=== PATIENT | female | born 1955 | race Caucasian/White ===

== ENCOUNTER → 2016-09-18 | Outpatient (CLI) | payer OTHER ==
[~2016-09-18] MED LIST: ACET-1256 PO; AMLO-114 PO; ATOR-22 PO; CLC100 PO; LEVO75TA PO; LISI-461 PO; METO1TAB69 PO; OXYC7.5T62 PO
[2016-09-18 10:50] LABS: ALT/SGPT 25 U/L (12-78); BLOOD UREA NITROGEN 35 mg/dl (7-18); BUN/CREATININE RATIO 24.7 (10-20); CALCIUM 9.7 mg/dl (8.5-10.1); CARBON DIOXIDE 23 mmol/L (21-32); CHLORIDE 107 mmol/L (98-107); GLUCOSE 92 mg/dl (70-99); POTASSIUM 4.1 mmol/L (3.5-5.1); SODIUM 143 mmol/L (136-145)
[2016-09-18 10:52] LABS: BLOOD UREA NITROGEN 35 mg/dl (7-18); BUN/CREATININE RATIO 24.8 (10-20); CALCIUM 9.9 mg/dl (8.5-10.1); CARBON DIOXIDE 24 mmol/L (21-32); CHLORIDE 108 mmol/L (98-107); GLUCOSE 84 mg/dl (70-99); PHOSPHORUS 3.3 mg/dl (2.5-4.9); POTASSIUM 4.3 mmol/L (3.5-5.1); SODIUM 143 mmol/L (136-145)
[2016-09-18 10:53] LABS: ALKALINE PHOSPHATASE 113 U/L (45-117); AST/SGOT 17 U/L (15-37)
== END | disposition home or self-care (01) ==
LOC: C.LAB 09:21
PROVIDERS: ATTEND Urology
DX: Q61.3 Polycystic kidney, unspecified (principal); C64.9 Malignant neoplasm of unspecified kidney, except renal pelvis

== ENCOUNTER → 2016-09-26 | Outpatient (CLI) | payer OTHER ==
[~2016-09-26] MED LIST changes: +OPTIRAY 320 IV PRN
--- NOTE | 2016-09-26 09:02 | DIAGNOSTIC IMAGING REPORT ---
CT ABD/PELVIS IV AND ORAL CONT CLINICAL HISTORY: Renal cell carcinoma. Polycystic kidney disease. COMPARISON STUDY: 12/31/2015 TECHNIQUE: Following the IV administration of 91 mL of Optiray-320, CT scan of the abdomen and pelvis was performed from the lung bases to the proximal femurs. Images are reviewed in the axial, sagittal, and coronal planes. IV contrast was administered without complication. CT DOSE: FINDINGS: Lower chest: The heart is normal in size and configuration, without pericardial effusion. The lung bases and pleural spaces are clear. Liver: There are innumerable subcentimeter hepatic hypodensities, consistent with cysts as would be seen in autosomal dominant polycystic kidney disease. These remain similar to the preceding study. Gallbladder: Unremarkable. Spleen: Normal in size and attenuation. Pancreas: Unremarkable. Adrenal glands: Unremarkable. Kidneys: The kidneys are markedly enlarged and replaced by innumerable cysts. There is been interval resection of the large upper pole right renal mass. There is no evidence of recurrence. Bowel: There are no transition zones indicate bowel obstruction. There are no findings to indicate acute diverticulitis. There are no findings to indicate acute appendicitis. Peritoneum: There is no intraperitoneal free air or abdominal ascites. Vasculature: The abdominal aorta is normal in course and caliber. Adenopathy: None. Pelvic viscera: The patient appears be status post a prior hysterectomy. Skeletal structures: No lytic lesions are visualized. There is bilateral L5 spondylolysis. There is grade 1 spondylolisthesis of L5 and S1. IMPRESSION: 1. CT evidence of a autosomal dominant polycystic kidney disease with enlarged kidneys containing multiple cysts, and multiple small hepatic cysts 2. Interval resection of the previously identified solid right upper pole renal mass 3. No CT evidence of metastatic disease within the abdomen or pelvis Electronically signed by: Miguel A Prieto M.D. 09/26/2016 9:00 AM Dictated Date/Time: 09/26/2016 8:51 AM
--- NOTE | 2016-09-26 09:03 | DIAGNOSTIC IMAGING REPORT ---
CT OF THE CHEST WITH IV CONTRAST CLINICAL HISTORY: Renal mass. Renal cell carcinoma. Polycystic kidney disease. COMPARISON STUDY: Chest CT January 12, 2016. TECHNIQUE: Following IV administration of 91 mL of Optiray-320, helical axial images of the chest were obtained. Images were viewed in the axial, sagittal and coronal planes. IV contrast was administered without complication. CT DOSE: 460.06 mGy.cm FINDINGS: No enlarged axillary, mediastinal or hilar lymph nodes are present. The size of the heart is normal. There is no pericardial effusion. Mild emphysema is noted. A few tiny pulmonary nodules are unchanged since exam of January 12, 2016 and include a 2 mm nodule within the right upper lobe shown on image 56 of 301 and a 3 mm right upper lobe nodule shown image 46. There is a 2 mm nodule shown on image 44 within the right upper lobe. No new nodules are present. There is a calcified 3 mm left upper lobe nodule. Central airways are patent. No suspicious osseous lesions are present. The abdomen and pelvis will be reported separately but images within the upper abdomen demonstrate innumerable renal and hepatic cysts. The solid right renal lesion has been resected. This is better depicted on the abdominal CT. IMPRESSION: 1. No convincing evidence of metastatic disease within the chest. 2. No change in several tiny pulmonary nodules since CT of January 12, 2016. These are likely benign although can be assessed on subsequent studies to ensure resolution. 3. Moderate emphysema. 4. Findings consistent with autosomal dominant polycystic kidney disease. Interval resection of the right renal mass which is better depicted on the abdominal CT. Electronically signed by: Feng Benavides M.D. 09/26/2016 9:01 AM Dictated Date/Time: 09/26/2016 8:51 AM
== END | disposition home or self-care (01) ==
LOC: C.CTS 08:26
PROVIDERS: ATTEND Urology
DX: N28.89 Other specified disorders of kidney and ureter (principal)

== ENCOUNTER → 2017-03-21 | Outpatient (CLI) | payer OTHER ==
[~2017-03-21] MED LIST changes: -OPTIRAY 320 IV PRN
--- NOTE | 2017-03-21 10:11 | DIAGNOSTIC IMAGING REPORT ---
TWO VIEW CHEST CLINICAL HISTORY: Preoperative examination. FINDINGS: PA and lateral chest radiographs are correlated with chest CT dated 09/26/2016. The cardiomediastinal silhouette is unremarkable. Mild emphysema and chronic interstitial thickening are similar to previous. No airspace consolidation or pleural effusion is identified. There is atherosclerotic calcification of the thoracic aorta. There is no pneumothorax. The skeletal structures are osteopenic. The bony thorax appears intact. Cholecystectomy clips are seen in the right upper quadrant. IMPRESSION: Mild emphysema with no active disease in the chest. Electronically signed by: Michael Chun M.D. 03/21/2017 10:09 AM Dictated Date/Time: 03/21/2017 10:05 AM
[2017-03-21 10:44] LABS: BASO % 0.1 %; BASO ABS # 0.01 K/uL (0-0.2); COMPLETE YES; HEMATOCRIT 42.9 % (37-47); IG% 0.3 %; LYMPH % 21.8 %; LYMPH ABS # 1.89 K/uL (1.2-3.4); MEAN CELL VOLUME 88.8 fL (80-100); MEAN CORPUSCULAR HEMOGLOBIN 29.4 pg (25-34); MEAN CORPUSCULAR HGB CONC 33.1 g/dl (32-36); MONO % 9.7 %; NEUT % 66.1 %; PLATELET COUNT 284 K/uL (130-400); RED BLOOD COUNT 4.83 M/uL (4.2-5.4); WHITE BLOOD COUNT 8.65 K/uL (4.8-10.8)
[2017-03-21 10:56] LABS: ALT/SGPT 34 U/L (12-78); BLOOD UREA NITROGEN 35 mg/dl (7-18); BUN/CREATININE RATIO 26.8 (10-20); CALCIUM 9.5 mg/dl (8.5-10.1); CARBON DIOXIDE 29 mmol/L (21-32); CHLORIDE 107 mmol/L (98-107); GLUCOSE 85 mg/dl (70-99); MAGNESIUM 2.1 mg/dl (1.8-2.4); POTASSIUM 4.9 mmol/L (3.5-5.1); SODIUM 139 mmol/L (136-145)
[2017-03-21 10:59] LABS: ALKALINE PHOSPHATASE 97 U/L (45-117); AST/SGOT 21 U/L (15-37); PHOSPHORUS 3.8 mg/dl (2.5-4.9)
[2017-03-21 12:37] LABS: URINE APPEARANCE CLEAR (CLEAR); URINE BILIRUBIN NEG (NEG); URINE COLOR YELLOW; URINE EPITHELIAL CELL AUTO 0-5 /lpf (0-5); URINE NITRITE NEG (NEG); URINE SPECIFIC GRAVITY 1.016 (1.000-1.030); UROBILINOGEN NEG (NEG); ZZUR CULT IF INDIC CLEAN CATCH NO
[2017-03-21 12:40] LABS: MANUAL MICROSCOPIC REQUIRED? NO; REVIEW REQ? NO
[2017-03-21 12:47] LABS: URINE PROTIEN/CREAT RATIO 0.2 (0-0.2); URINE TOTAL PROTEIN 10.7 mg/dl (0-11.9)
== END | disposition home or self-care (01) ==
LOC: C.RAD 09:34
PROVIDERS: ATTEND Urology
DX: Q61.3 Polycystic kidney, unspecified (principal)

== ENCOUNTER → 2017-09-10 | Outpatient (CLI) | payer OTHER ==
[2017-09-03 11:17] LABS: ALBUMIN 3.6 gm/dl (3.4-5.0); ALT/SGPT 20 U/L (12-78); BLOOD UREA NITROGEN 38 mg/dl (7-18); CALCIUM 9.5 mg/dl (8.5-10.1); CARBON DIOXIDE 24 mmol/L (21-32); CREATININE 1.43 mg/dl (0.60-1.20); GLUCOSE 86 mg/dl (70-99); POTASSIUM 4.4 mmol/L (3.5-5.1); SODIUM 139 mmol/L (136-145)
[2017-09-03 11:20] LABS: ALKALINE PHOSPHATASE 97 U/L (45-117); AST/SGOT 14 U/L (15-37); TOTAL PROTEIN 7.3 gm/dl (6.4-8.2)
[~2017-09-10] MED LIST changes: +METO100T44 PO; -METO1TAB69 PO; +OPTIRAY 320 IV PRN
--- NOTE | 2017-09-10 08:47 | DIAGNOSTIC IMAGING REPORT ---
CT SCAN OF THE ABDOMEN AND PELVIS COMBO RENAL MASS PROTOCOL CLINICAL HISTORY: Clear cell carcinoma of the kidney. COMPARISON STUDY: Abdominal CT dated 09/26/2016 TECHNIQUE: Before and following the IV administration of 119 cc of Optiray 320, CT scan of the abdomen and pelvis is performed from the lung bases to the proximal femora using the renal mass protocol. Images are reviewed in the axial, sagittal, and coronal planes. IV contrast was administered without complication. A dose lowering technique was utilized adhering to the principles of ALARA. FINDINGS: Lung bases: The heart is normal in size and without pericardial effusion. The lung bases are clear. Liver: The contrast-enhanced liver is normal in size, contour, and attenuation. There is no intrahepatic biliary ductal dilatation. The hepatic veins and portal veins are patent. There are too numerous to count hepatic cysts measuring up to 1.6 cm. Gallbladder: Unremarkable. Spleen: Normal in size and attenuation. Pancreas: Unremarkable. Adrenal glands: Unremarkable. Kidneys: Surgical clips are noted around the upper pole of the right kidney. No renal calculi are seen on the unenhanced series. The contrast enhanced kidneys are markedly enlarged and demonstrate cortical atrophy. The kidneys are infiltrated by too numerous to count cysts. The appearance is consistent with autosomal dominant polycystic kidney disease. Several these cysts contain thin septations and calcifications. There is fullness of the renal collecting system bilaterally without hydronephrosis. The kidneys enhance and excrete symmetrically. No enhancing renal cortical mass is clearly identified. There is no evidence of urothelial lesion within the renal collecting system bilaterally or involving the proximal ureters. Abdominal vasculature: The abdominal aorta is normal in course and caliber noting moderate atherosclerotic calcification. Bowel: There are scattered colonic diverticula without CT evidence of acute diverticulitis. No bowel obstruction is seen. The appendix is well-visualized and normal. Peritoneum: There is no intraperitoneal free air or abdominal ascites. There is a small fat-containing umbilical hernia. Lymphadenopathy: None. Pelvic viscera: The bladder is decompressed and not well evaluated. The uterus is surgically absent. Findings suggest previous right inguinal herniorrhaphy. 2 small cystic foci are again seen in the left ovary measure up to 1.9 cm. Skeletal structures: The skeletal structures are osteopenic. Mild lumbosacral spondylosis is noted. There are bilateral pars defects at L5 with grade 1 anterolisthesis, advanced disc space narrowing, and endplate sclerosis seen at L5-S1. No lytic or blastic lesions are identified. IMPRESSION: 1. There is no evidence of metastatic disease in the abdomen or pelvis. 2. The kidneys are markedly enlarged and infiltrated by numerous cysts. Additionally, there are numerous hepatic cysts and the appearance is consistent with autosomal dominant polycystic kidney disease. 3. Postoperative change is identified in the upper pole of the right kidney. There is no evidence of recurrent or residual enhancing renal mass lesion on today's examination. 4. There are 2 cystic foci identified in the left ovary. This is abnormal for age and follow-up with a nonemergent pelvic ultrasound is recommended for further assessment. 5. Additional findings as above. Electronically signed by: Michael Chun M.D. 09/10/2017 8:46 AM Dictated Date/Time: 09/10/2017 8:32 AM
--- NOTE | 2017-09-10 08:50 | DIAGNOSTIC IMAGING REPORT ---
CHEST CT WITH CONTRAST CT DOSE: 802.79 mGy.cm HISTORY: Subsequent treatment strategy. History of pulmonary nodules and history of clear cell carcinoma. C64.9 Clear cell carcinoma of kidney TECHNIQUE: Multiaxial CT images of the chest were performed following the intravenous administration of contrast. A dose lowering technique was utilized adhering to the principles of ALARA. COMPARISON: CT chest 09/26/2016 and 01/12/2016. FINDINGS: No dominant thyroid nodule identified. No pathologically enlarged lymph nodes about the chest. Breast parenchyma appears homogeneous. Heart is mildly enlarged without pericardial effusion. Calcifications of the aortic annulus are noted. Moderate atherosclerosis of the thoracic aorta without aneurysm or dissection identified. Moderate mixed plaquing is seen at the origin of the celiac trunk causing less than 50% stenosis. The left vertebral artery emanates strictly from the aortic arch. Imaged great vessels appear patent. The opacified pulmonary arterial tree appears unremarkable. Moderate upper lobe predominant centrilobular emphysema. No pneumothorax, pleural effusion or focal airspace consolidation. 3 mm subpleural calcified granuloma of the left lung apex. There are a few scattered solid noncalcified pulmonary nodules redemonstrated measuring 2-3 mm in size which appear unchanged. No new, or enlarging pulmonary nodules are identified. Central airways are patent. Innumerable low attenuating lesions throughout the liver suggests hepatic cysts. Innumerable bilateral renal cysts are also present. Postsurgical changes of the right kidney are noted. Bones appear intact. No suspicious lytic or blastic bony lesions identified. IMPRESSION: 1. No acute intrathoracic abnormality identified. No definite evidence of metastatic disease or pathologic adenopathy. 2. Unchanged size and appearance of the 2 to 3 mm scattered solid pulmonary nodules which appear stable dating back to 01/12/2016. Benign etiology is favored, however attention at follow-up recommended. 3. Moderate upper lobe predominant centrilobular emphysema. 4. Autosomal dominant polycystic kidney disease. Electronically signed by: Harry Ward M.D. 09/10/2017 8:48 AM Dictated Date/Time: 09/10/2017 8:30 AM
== END | disposition home or self-care (01) ==
LOC: C.CTS 07:48
PROVIDERS: ATTEND Urology
DX: C64.9 Malignant neoplasm of unspecified kidney, except renal pelvis (principal)

== ENCOUNTER → 2017-09-17 | Outpatient (CLI) | payer OTHER ==
[~2017-09-17] MED LIST changes: -OPTIRAY 320 IV PRN
== END | disposition home or self-care (01) ==
LOC: C.PAPS 15:11
PROVIDERS: ATTEND Family Medicine
DX: Z12.4 Encounter for screening for malignant neoplasm of cervix (principal)

== ENCOUNTER → 2017-09-24 | Outpatient (CLI) | payer OTHER ==
[2017-09-24 12:14] LABS: BASO % 0.2 %; BASO ABS # 0.02 K/uL (0-0.2); EOS % 1.6 %; EOS ABS # 0.14 K/uL (0-0.5); HEMATOCRIT 41.8 % (37-47); HEMOGLOBIN 14.2 g/dL (12.0-16.0); IG# 0.02 K/uL (0.00-0.02); LYMPH % 17.7 %; LYMPH ABS # 1.54 K/uL (1.2-3.4); MEAN CELL VOLUME 88.4 fL (80-100); MEAN PLATELET VOLUME 10.1 fL (7.4-10.4); MONO % 7.9 %; MONO ABS # 0.69 K/uL (0.11-0.59); NEUT % 72.4 %; NEUT ABS # 6.27 K/uL (1.4-6.5); PLATELET COUNT 281 K/uL (130-400); RED CELL DISTRIBUTION WIDTH CV 12.5 % (11.5-14.5); RED CELL DISTRIBUTION WIDTH SD 40.4 fL (36.4-46.3); WHITE BLOOD COUNT 8.68 K/uL (4.8-10.8)
[2017-09-24 12:20] LABS: ALBUMIN 3.9 gm/dl (3.4-5.0); BLOOD UREA NITROGEN 34 mg/dl (7-18); CALCIUM 9.6 mg/dl (8.5-10.1); CARBON DIOXIDE 25 mmol/L (21-32); CREATININE 1.38 mg/dl (0.60-1.20); GLUCOSE 96 mg/dl (70-99); POTASSIUM 4.6 mmol/L (3.5-5.1); SODIUM 135 mmol/L (136-145)
[2017-09-24 12:21] LABS: PHOSPHORUS 3.7 mg/dl (2.5-4.9)
--- NOTE | 2017-09-24 13:01 | DIAGNOSTIC IMAGING REPORT ---
PELVIC ULTRASOUND CLINICAL HISTORY: Left ovarian cyst. COMPARISON STUDY: CT of the abdomen and pelvis September 26, 2016 and September 10, 2017. TECHNIQUE: Transabdominal and transvaginal sonography of the pelvis was performed. FINDINGS: The uterus is surgically absent. The right ovary was not visualized. Multiple renal cysts were incidentally noted. The left ovary measures 3.9 x 2.6 x 2.3 cm. A 1.9 cm simple appearing cystic lesion within left ovary is noted. There is also a 1.6 x 1.3 x 1.7 cm cystic left ovarian lesion which contains a few thickened septations. These contain no color flow. No ascites. IMPRESSION: 1. A few cystic lesions within the left ovary, including a 1.7 cm lesion with a few thickened septations without color flow. This is indeterminate but probably benign. A follow-up pelvic ultrasound in 6 months to ensure stability is recommended. 2. Nonvisualization of the right ovary. 3. Status post hysterectomy. Electronically signed by: Feng Benavides M.D. 09/24/2017 1:00 PM Dictated Date/Time: 09/24/2017 12:53 PM
--- NOTE | 2017-09-24 16:15 | ECHOCARDIOGRAM REPORT ---
*NOTICE TO RECEIVING CONSTITUTION PARTY AGENCY This information is strictly Confidential and protected under [place] law. [place] law prohibits you from making any further disclosure of this information unless further disclosure is expressly permitted by the written consent of the person to whom it pertains or is authorized by law. A general authorization for the release of medical or other information is not sufficient for this purpose. Hospital accepts no responsibility if the information is made available to any other person, INCLUDING THE PATIENT. Interpretation Summary * Name: HAYES SALGUERO Study Date: 09/24/2017 12:16 PM BP: 133/82 mmHg * Patient Location: [facility] HR: 61 * : 1955 (M/d/yyyy) Gender: Female Height: 63 in * Age: 61 yrs Ethnicity: [place] Weight: 117 lb * Ordering Physician: Anali Dacosta * Referring Physician: Anali Dacosta D.O. * Performed By: Kimberley Jovel RCS * * Reason For Study: CARDIOMEGALY / OVARIAN CYST * BSA: 1.5 m2 * -- Conclusions -- * 1. Normal LV size. Mild concentric LVH. * 2. Normal LV systolic function. LVEF 60-65%. No regional wall motion abnormalities. * 3. Normal RV size and function. * 4. No significant valvular pathology. * 5. Normal estimated PA and RA pressures. * 6. Compared with prior study on 02/17/2016: No significant change Procedure Details * A complete two-dimensional transthoracic echocardiogram was performed (2D, M-mode, Doppler and color flow Doppler). Left Ventricle * The left ventricle is grossly normal size. * There is mild concentric left ventricular hypertrophy. Right Ventricle * The right ventricle is grossly normal size. * The right ventricular systolic function is normal as assessed by tricuspid annular plane systolic excursion (TAPSE) (normal >1.5 cm). Atria * The left atrial size is normal. * Right atrial size is normal. * No ASD detected; PFO is not assessed. Mitral Valve * The mitral valve is grossly normal. * There is no mitral valve stenosis. * There is trace mitral regurgitation. Tricuspid Valve * The tricuspid valve is not well visualized, but is grossly normal. * There is no tricuspid stenosis. * There is trace tricuspid regurgitation. Aortic Valve * The aortic valve opens well. * The aortic valve is trileaflet. * No hemodynamically significant valvular aortic stenosis. * There is no significant aortic regurgitation. Pulmonic Valve * The pulmonary valve is inadequately visualized, but the Doppler data is adequate for interpretation. * Pulmonic stenosis is absent. * Trace pulmonic valvular regurgitation. Great Vessels * The aortic root and proximal ascending aorta are normal sized. Pericardium/Pleural * There is no pericardial effusion. Great Vessels * Normal inferior vena cava size and collapsability with sniff indicates a normal right atrial pressure of 3 mmHg MMode 2D Measurements and Calculations IVSd 1.3 cm IVSs 1.5 cm LVIDd 2.6 cm LVIDs 1.7 cm LVPWd 1.2 cm LVPWs 1.5 cm IVS/LVPW 1.1 FS 35.0 % EDV(Teich) 23.5 ml ESV(Teich) 7.9 ml EF(Teich) 66.5 % EDV(cubed) 16.6 ml ESV(cubed) 4.6 ml EF(cubed) 72.5 % % IVS thick 12.7 % % LVPW thick 23.3 % LV mass(C)d 97.4 grams LV mass(C)dI 63.2 grams/m\S\2 LV mass(C)s 81.3 grams LV mass(C)sI 52.8 grams/m\S\2 SV(Teich) 15.6 ml SI(Teich) 10.1 ml/m\S\2 SV(cubed) 12.1 ml SI(cubed) 7.8 ml/m\S\2 Ao root diam 2.9 cm Ao root area 6.5 cm\S\2 ACS 2.2 cm LA dimension 2.2 cm LA/Ao 0.76 LVOT diam 1.6 cm LVOT area 2.0 cm\S\2 LVAd ap4 21.6 cm\S\2 LVLd ap4 6.4 cm EDV(MOD-sp4) 58.6 ml EDV(sp4-el) 62.3 ml LVAs ap4 14.6 cm\S\2 LVLs ap4 5.6 cm ESV(MOD-sp4) 30.9 ml ESV(sp4-el) 32.4 ml EF(MOD-sp4) 47.2 % EF(sp4-el) 47.9 % LVAd ap2 27.5 cm\S\2 LVLd ap2 7.7 cm EDV(MOD-sp2) 80.2 ml EDV(sp2-el) 83.9 ml LVAs ap2 19.1 cm\S\2 LVLs ap2 7.0 cm ESV(MOD-sp2) 42.0 ml ESV(sp2-el) 44.3 ml EF(MOD-sp2) 47.6 % EF(sp2-el) 47.3 % LVLd %diff 17.1 % EDV(MOD-bp) 73.9 ml LVLs %diff 20.3 % ESV(MOD-bp) 40.5 ml EF(MOD-bp) 45.2 % SV(MOD-sp4) 27.6 ml SI(MOD-sp4) 17.9 ml/m\S\2 SV(MOD-sp2) 38.1 ml SI(MOD-sp2) 24.8 ml/m\S\2 SV(MOD-bp) 33.4 ml SI(MOD-bp) 21.7 ml/m\S\2 SV(sp4-el) 29.8 ml SI(sp4-el) 19.4 ml/m\S\2 SV(sp2-el) 39.7 ml SI(sp2-el) 25.8 ml/m\S\2 Doppler Measurements and Calculations MV E max bethany 56.6 cm/sec MV A max bethany 96.5 cm/sec MV E/A 0.59 MV P1/2t max bethany 80.2 cm/sec MV P1/2t 74.0 msec MVA(P1/2t) 3.0 cm\S\2 MV dec slope 317.5 cm/sec\S\2 MV dec time 0.39 sec Ao V2 max 104.4 cm/sec Ao max PG 4.4 mmHg Ao max PG (full) 0.92 mmHg ELIZABETH(V,A) 1.8 cm\S\2 ELIZABETH(V,D) 1.8 cm\S\2 LV V1 max PG 3.4 mmHg LV V1 max 92.7 cm/sec PA V2 max 78.5 cm/sec PA max PG 2.5 mmHg TR max bethany 188.9 cm/sec
== END | disposition home or self-care (01) ==
LOC: C.ULTR 10:59
PROVIDERS: ATTEND Family Medicine
DX: I51.7 Cardiomegaly (principal); N83.292 Other ovarian cyst, left side; Q61.3 Polycystic kidney, unspecified

== ENCOUNTER → 2017-10-16 | Outpatient (CLI) | payer OTHER ==
--- NOTE | 2017-10-16 15:12 | MAMMOGRAPHY REPORT ---
THIS REPORT HAS BEEN AMENDED. BILATERAL DIGITAL SCREENING MAMMOGRAM TOMOSYNTHESIS WITH CAD: 10/16/2017 CLINICAL HISTORY: Routine screening. Patient has no complaints. TECHNIQUE: Breast tomosynthesis in addition to standard 2D mammography was performed. Current study was also evaluated with a Computer Aided Detection (CAD) system. COMPARISON: No prior exams were available for comparison. BREAST COMPOSITION: There are scattered areas of fibroglandular density in both breasts. FINDINGS: No suspicious mass, architectural distortion or cluster of microcalcifications is seen. IMPRESSION: ACR BI-RADS CATEGORY 1: NEGATIVE There is no mammographic evidence of malignancy. Prior outside mammograms are currently being [place] and if obtained they will be reviewed, compared to the current exam to assess for any more subtle changes, and an addendum will be made to this report. Otherwise, a 1 year screening mammogram is re commended. The patient will receive written notification of the results. Approximately 10% of breast cancers are not detected with mammography. A negative mammographic report should not delay biopsy if a clinically suggestive mass is present. Tiffani Will M.D. ay/:10/16/2017 14:07:41 [employer]: Claire BROWN(Brittany)(M), [facility] letter sent: Normal 08/07 BI-RADS Code: ACR BI-RADS Category 1: Negative AMENDMENT: 10/17/2017 Tiffani Will M.D. Prior outside mammograms from [facility] dated 11/14/2010, 01/18/2012, 01/20/2013, 01/21/2014, 04/14/2015 became available for review. There has been no significant interval change comparing to the p rior outside mammograms. No new suspicious masses, calcifications, areas of architectural distortion or asymmetries are seen bilaterally. Recommend routine screening mammography in 1 year. Amended BI-RADS: ACR BI-RADS Category 1: Negative letter sent: Normal 2
== END | disposition home or self-care (01) ==
LOC: C.MAMM 12:53
PROVIDERS: ATTEND Family Medicine
DX: Z12.31 Encounter for screening mammogram for malignant neoplasm of breast (principal); M85.89 Other specified disorders of bone density and structure, multiple sites

== ENCOUNTER → 2018-03-28 | Outpatient (CLI) | payer OTHER ==
[~2018-03-28] MED LIST changes: -AMLO-114 PO; +AMLO10TA3 PO
--- NOTE | 2018-03-28 10:00 | DIAGNOSTIC IMAGING REPORT ---
PELVIC COMPLETE NON OB HISTORY: 62 years-old Female OVARIAN CYST follow-up study in a patient with ovarian cysts COMPARISON: Pelvic ultrasound 09/24/2017 TECHNIQUE: Multiple real-time sonographic images of the deep pelvic structures were obtained transabdominally and transvaginally assessing grayscale appearance, color and spectral flow FINDINGS: TRANSABDOMINAL: Surgically absent uterus. TRANSVAGINAL: The left ovary measures 4.0 x 2.3 x 2.8 cm. Arterial inflow to the left ovary is documented with venous outflow. There are several cystic lesions which appear to be clustered together or less likely demonstrate internal septations, largest individual cyst measures up to 1.8 x 1.5 x 1.7 cm, previously 1.9 x 1.5 x 1.5 cm. The right ovary measures 1.8 x 1.3 x 1.1 cm and demonstrates arterial inflow. There is an indeterminate circumscribed ovoid hypoechoic structure adjacent to the right adnexum measuring 2.8 x 2.0 x 1.2 cm which appears to demonstrate internal vascularity. This is nicely seen on image 44. IMPRESSION: 1. No significant change of the cystic lesions about the left ovary, which favor benign etiology. 2. Prior hysterectomy. 3. Indeterminate isoechoic structure adjacent to the right adnexum measuring up to 2.8 cm. This could be correlated with CT of the pelvis. The above report was generated using voice recognition software. It may contain grammatical, syntax or spelling errors. Electronically signed by: Harry Ward M.D. 03/28/2018 9:58 AM Dictated Date/Time: 03/28/2018 9:48 AM
--- NOTE | 2018-03-28 10:03 | DIAGNOSTIC IMAGING REPORT ---
CHEST 2 VIEWS ROUTINE HISTORY: 62 years-old Female OVARIAN CYST patient presents with ovarian cysts. No acute chest complaints. COMPARISON: Chest radiograph 03/21/2017, chest CT 09/10/2017 TECHNIQUE: PA and lateral views of the chest FINDINGS: Cardiomediastinal and hilar silhouettes are within normal limits. Calcification of the aorta. Emphysema and hyperinflation without pneumothorax, pleural effusion, focal airspace consolidation or overt pulmonary edema. Bones of the chest appear grossly intact. Surgical clips are seen about the abdominal right upper quadrant. IMPRESSION: Emphysema without acute process. The above report was generated using voice recognition software. It may contain grammatical, syntax or spelling errors. Electronically signed by: Harry Ward M.D. 03/28/2018 10:02 AM Dictated Date/Time: 03/28/2018 10:00 AM
[2018-03-28 10:13] LABS: BASO % 0.1 %; BASO ABS # 0.01 K/uL (0-0.2); EOS % 1.9 %; EOS ABS # 0.18 K/uL (0-0.5); HEMATOCRIT 43.6 % (37-47); HEMOGLOBIN 14.7 g/dL (12.0-16.0); IG# 0.02 K/uL (0.00-0.02); LYMPH % 17.7 %; MEAN CELL VOLUME 89.2 fL (80-100); MEAN CORPUSCULAR HEMOGLOBIN 30.1 pg (25-34); MEAN CORPUSCULAR HGB CONC 33.7 g/dl (32-36); MEAN PLATELET VOLUME 10.2 fL (7.4-10.4); MONO % 7.8 %; MONO ABS # 0.75 K/uL (0.11-0.59); NEUT % 72.3 %; NEUT ABS # 6.92 K/uL (1.4-6.5); PLATELET COUNT 242 K/uL (130-400); RED CELL DISTRIBUTION WIDTH CV 13.1 % (11.5-14.5); RED CELL DISTRIBUTION WIDTH SD 42.3 fL (36.4-46.3); WHITE BLOOD COUNT 9.58 K/uL (4.8-10.8)
[2018-03-28 11:02] LABS: ALKALINE PHOSPHATASE 100 U/L (45-117); ALT/SGPT 35 U/L (12-78); AST/SGOT 22 U/L (15-37); BLOOD UREA NITROGEN 45 mg/dl (7-18); CALCIUM 9.2 mg/dl (8.5-10.1); CARBON DIOXIDE 26 mmol/L (21-32); CREATININE 1.51 mg/dl (0.60-1.20); GLUCOSE 94 mg/dl (70-99); PHOSPHORUS 3.3 mg/dl (2.5-4.9); POTASSIUM 5.1 mmol/L (3.5-5.1); SODIUM 135 mmol/L (136-145); TOTAL PROTEIN 7.7 gm/dl (6.4-8.2)
== END | disposition home or self-care (01) ==
LOC: C.ULTR 08:27
PROVIDERS: ATTEND Family Medicine
DX: Q61.3 Polycystic kidney, unspecified (principal); N83.202 Unspecified ovarian cyst, left side; J43.9 Emphysema, unspecified; I10 Essential (primary) hypertension